=== PATIENT | female | born 1975 | race Caucasian/White ===

== ENCOUNTER 2018-09-09 08:26 | Inpatient (IN) | payer OTHER ==
[2018-09-04 14:48] VITALS: BMI 41.6
--- NOTE | 2018-09-09 10:41 | HP ---
Admitting History and Physical - Admission Chief Complaint: Morbid obesity. BMI 41.6 History Source: Patient Limitations to Obtaining History: No Limitations - Past Medical History ...LMP Comment: 2002 - Past Surgical History Past Surgical History: Yes: Cholecystectomy, , Hysterectomy - Smoking History Smoking history: Former smoker Have you smoked in the past 12 months: No Aproximately how many cigarettes per day: 30 If you are a former smoker, when did you quit?: 2013 - Alcohol/Substance Use Hx Alcohol Use: No Home Medications - Allergies Allergies/Adverse Reactions: Allergies Allergy/AdvReac Type Severity Reaction Status Date / Time morphine Allergy Severe Difficulty Verified 09/09/18 08:42 Breathing aspirin AdvReac Intermediate BRUISING Verified 09/09/18 08:42 - Home Medications Home Medications: Ambulatory Orders Acetaminophen [Tylenol] 2 each PO PRN PRN 09/04/18 Famotidine [Pepcid] 20 mg PO BID #60 tablet 09/09/18 Famotidine [Pepcid] 20 mg PO BID #60 tablet 09/09/18 Family Disease History - Family Disease History Family History: Denies Review of Systems - Review of Systems Eyes: reports: No Symptoms HENT: reports: No Symptoms Neck: reports: No Symptoms Cardiovascular: reports: No Symptoms Respiratory: reports: No Symptoms Gastrointestinal: reports: No Symptoms Neurological: reports: No Symptoms Pain Intensity: 0 Physical Examination Vital Signs: Vital Signs Temperature 98.5 F 09/09/18 08:47 Pulse Rate 81 09/09/18 08:47 Respiratory Rate 19 09/09/18 08:47 Blood Pressure 116/74 09/09/18 08:47 O2 Sat by Pulse Oximetry (%) 96 09/09/18 08:46 Constitutional: Yes: No Distress HENT: Yes: WNL Neck: Yes: WNL Cardiovascular: Yes: WNL Respiratory: Yes: Regular Gastrointestinal: Yes: Soft, Abdomen, Obese. No: Tenderness Neurological: Yes: Alert, Oriented Problem List - Problems (1) Morbid obesity due to excess calories Code(s): E66.01 - MORBID (SEVERE) OBESITY DUE TO EXCESS CALORIES (2) Body mass index (BMI) of 40.1 to 44.9 in adult Code(s): Z68.41 - BODY MASS INDEX (BMI) 40.0-44.9, ADULT Assessment/Plan Laparoscopic possible open vertical sleeve gastrectomy, possible liver biopsy
[2018-09-09] MEDS ORDERED: METOCLOPRAMIDE HCL INJECTION 10 MG/2 ML VIAL IVPUSH SCH ×2 (10:45→14:00)
[2018-09-09] MEDS ORDERED: ACETAMINOPHEN 1000 MG/100 ML VIAL (NON FORMULARY) IVPB SCH (10:45)
[2018-09-09] MEDS ORDERED: MEPERIDINE HCL 50 MG/ML VIAL IM PRN (10:45)
[2018-09-09] MEDS ORDERED: BUPIVACAINE HCL/PF 2.5 MG/ML - 30 ML VIAL IJ ONE (10:58)
[2018-09-09] MEDS ORDERED: BUPIVACAINE HCL/PF 0.25% (2.5MG/ML) 10 ML VIAL IJ ONE (12:38)
--- NOTE | 2018-09-09 12:51 | OP ---
Operative Note - Note: Operative Date: 09/09/18 Pre-Operative Diagnosis: Morbid obesity. BMI 41.6 Operation: Laparoscopic vertical sleeve gastrectomy, wedge liver biopsy Post-Operative Diagnosis: Same as Pre-op (as well as hepatomegaly) Surgeon: Kody Langley Physician Practice Manager: Jeanne Babin Anesthesia: General Specimens Removed: Greater curvature of stomach. Liver biopsy Estimated Blood Loss (mls): 30 Drains & Tubes with Location: 36 fr Bougie Operative Report Dictated: Yes
[2018-09-09] MEDS ORDERED: FAMOTIDINE 20 MG/50 ML IVPB 20 MG/50 ML MG IVPB ONE (13:00)
--- NOTE | 2018-09-09 13:04 | SURG ---
Surgery Winchman/Crane Operator Note Winchman/Crane Operator: Jeanne Babin PA-C Date of Service: 09/09/18 Diagnosis: Morbid obesity. BMI 41.6 Procedure: Laparoscopic vertical sleeve gastrectomy, wedge liver biopsy I was present for the entirety of the operative procedure. For further detail, please refer to operative report. Visit type - Case Type Case Type: Scheduled - New patient This patient is new to me today: Yes Date on this admission: 09/09/18
[2018-09-09] MEDS ORDERED: FAMOTIDINE 20 MG PREMIXED IVPB IVPB ONE (13:10)
[2018-09-09 13:39] LABS: HEMATOCRIT 40.8 % (32.4-45.2); HEMOGLOBIN 13.1 GM/dl (10.7-15.3); MCH 29.6 pg (25.7-33.7); MCHC 32.2 g/dl (32.0-36.0); MEAN CELL VOLUME 91.8 fl (80-96); MEAN PLT VOLUME 7.3 fl (7.5-11.1); PLATELET COUNT 419 K/MM3 (134-434); RBC 4.44 M/mm3 (3.60-5.2); RDW 13.6 % (11.6-15.6); WHITE BLOOD COUNT 12.5 K/mm3 (4.0-10.8)
[2018-09-09 13:46] LABS: ALBUMIN 3.8 g/dl (3.4-5.0); ALK PHOS 70 U/L (45-117); ANION GAP 9 MMOL/L (8-16); BILIRUBIN,TOTAL 0.5 mg/dl (0.2-1); BLOOD UREA NITROGEN 9 mg/dl (7-18); CALCIUM 8.5 mg/dl (8.5-10); CHLORIDE 106 mmol/L (98-107); CO2 23 mmol/L (21-32); CREATININE 0.6 mg/dl (0.55-1.3); GLUCOSE,RANDOM 130 mg/dl (74-106); POTASSIUM 3.7 mmol/L (3.5-5.1); SGOT/AST 40 U/L (15-37); SGPT/ALT 35 U/L (13-61); SODIUM 138 mmol/L (136-145); TOT PROT 6.8 g/dl (6.4-8.2)
[2018-09-09] MEDS: SODIUM CHLORIDE 1,000 ML IV SCH (14:48)
[2018-09-09] MEDS: LACTATED RINGERS SOLUTION 1,000 ML IV SCH (14:49)
[2018-09-09] MEDS: ONDANSETRON 4 MG/2 ML VIAL IVPUSH SCH ×3 (14:58→23:12)
[2018-09-09] MEDS: ACETAMINOPHEN 1000 MG/100 ML VIAL (NON FORMULARY) IVPB SCH (19:46)
[2018-09-09] MEDS: METOCLOPRAMIDE HCL INJECTION 10 MG/2 ML VIAL IVPUSH SCH (19:47)
--- NOTE | 2018-09-09 21:12 | SPEC ---
DATE OF OPERATION: 09/09/2018 SURGEON: Leyla Langley MD BRAKE LINING DRILLER: IRVING Nogueira PREOPERATIVE DIAGNOSES: 1. Morbid obesity. 2. Body mass index of 41.6. POSTOPERATIVE DIAGNOSES: 1. Morbid obesity. 2. Body mass index of 41.6. 3. Hepatomegaly. PROCEDURES: 1. Laparoscopic vertical sleeve gastrectomy. 2. Laparoscopic wedge liver biopsy. SPECIMENS: 1. Greater curve of stomach. 2. Liver biopsy. ESTIMATED BLOOD LOSS: 30 mL DRAINS: None. ANESTHESIA: GET. BOUGIE: Size 36-Amharic. REASON FOR PROCEDURE: This is a 43-year-old female who presents for weight loss options. After describing different options, decided to proceed with a laparoscopic, possible open vertical sleeve gastrectomy, possible liver biopsy. RISKS AND BENEFITS: After describing the different options for weight loss management, the patient decided to proceed with a laparoscopic, possible open vertical sleeve gastrectomy. The patient was seen by the respective subspecialties and cleared for surgery. The risks and benefits of the procedure were explained. These included bleeding, infection, hernia, MN, DVT, PE, injury to surrounding structures including the liver, colon, bowel, spleen, esophagus, vessel injury, nerve injury, weight regain, gastric leak, staple line leak, sleeve leak, obstruction, vitamin deficiency, hair loss and as some of the possible complications. The patient understood and signed informed consent. DESCRIPTION OF PROCEDURE: The patient was placed supine on the operating room table. The patient underwent general endotracheal intubation. The arms were brought out at 90 degrees and secured. A footboard was placed and the legs were secured laterally with padding. The abdomen was prepped and draped in the usual sterile fashion. A timeout was performed. An incision was made in the left upper quadrant and a Veress needle inserted. Pneumoperitoneum was established. Subsequently, the Veress needle was removed and a 5-mm trocar was placed under direct visualization with the laparoscope. The laparoscopic camera was then inserted and inspection of the abdominal cavity was performed. An incision was then made in the supraumbilical area and a 15-mm trocar was placed under direct visualization. A 5-mm trocar was then placed in the right upper quadrant and a 5-mm trocar was placed below the left subcostal margin. A stab wound was made in the subxiphoid area and a Fely clamp inserted and removed to dilate the tract. A Isidoro liver retractor was inserted. The post was secured at the bedside by the nursing staff. The patient was placed in steep reverse Trendelenburg position and the Isidoro liver retractor was used to secure the liver towards the anterior abdominal wall. The pylorus was identified and 6 cm proximal to it, the lesser sac was entered using the LigaSure device. All lateral attachments to the greater curvature of the stomach, including the short gastric vessels, were ligated using the LigaSure device toward the gastrosplenic and gastrophrenic ligaments. Once this was done in its entirety, it was confirmed that all tubes within the nasal or oropharyngeal cavity, including a temperature probe, was removed by Anesthesia. The bougie was then inserted by Anesthesia. Transection of the stomach was then begun staying adjacent to the bougie but away from the angularis. Transection of the stomach was performed near the portion of the stomach where the lesser sac was entered. Two laparoscopic Endo-ALEJANDRO black angelito were used at this location. Laparoscopic Endo ALEJANDRO purple staple loads were then used for the remainder of the transection until the greater curvature of the stomach was fully transected. This was done staying close to the bougie. Care was taken to stay away from the angle of His cephalad. The staple line was then inspected. Hemostasis was identified. A leak test was then performed. It was clamped distally to the staple line. Irrigation solution was placed in the left upper quadrant and air was insufflated by Anesthesia into the sleeve. No leaks were identified. No obstruction was identified. This was done through the entirety of the staple line. In addition, an upper endoscopy was performed. The endoscope was placed into the patients mouth and the entirety of the esophagus, GE junction, gastric pouch and staple line were inspected. No obstruction or leak was noted. The stomach was suctioned and the endoscope removed fully intact. At this point, the irrigation solution was suctioned and again, hemostasis was noted. A wedge liver biopsy was then performed. The left lobe of the liver was identified and a portion of the edge was grasped. Using electrocautery, a wedge of the liver was excised. This was removed and sent off the field as specimen. Hemostasis at the site of the wedge liver biopsy was attained using electrocautery. The 15-mm supraumbilical trocar was then removed and the greater curvature specimen removed from the site using a sponge stick bazzi. The specimen was inspected and a Veress needle inserted. The specimen insufflated adequately and no leak was identified. The staple line was noted to be intact. A Trae-Maribell device was then used to close the fascia with a 0 Vicryl suture at the site. Again, hemostasis was noted. The Isidoro liver retractor was then removed under direct visualization. Pneumoperitoneum was desufflated and the fascial sutures were secured. Hemostasis was noted at all incision sites and Marcaine was injected at all incision sites. All incision sites were closed using 4-0 Biosyn. Sterile dressings were applied. The patient tolerated the procedure well and was transferred to the recovery room in stable condition. The patient was transferred to telemetry for further monitoring. LEYLA LANGLEY M.D. FOREST/[id number]
[2018-09-09] MEDS: FAMOTIDINE 20 MG/50 ML IVPB 20 MG/50 ML MG IVPB SCH (22:00)
[2018-09-09] MEDS: ENOXAPARIN NA (PORCINE) 40 MG/0.4 ML DISP.SYRIN SQ SCH (22:00)
[2018-09-10] MEDS: ACETAMINOPHEN 1000 MG/100 ML VIAL (NON FORMULARY) IVPB SCH ×2 (02:01→09:00)
[2018-09-10] MEDS ORDERED: ACETAMINOPHEN INJECTION 100 ML IVPB ONE (02:01)
[2018-09-10] MEDS: METOCLOPRAMIDE HCL INJECTION 10 MG/2 ML VIAL IVPUSH SCH ×3 (02:02→14:40)
[2018-09-10] MEDS: ONDANSETRON 4 MG/2 ML VIAL IVPUSH SCH ×4 (02:54→15:38)
[2018-09-10 07:44] LABS: HEMOGLOBIN 12.1 GM/dl (10.7-15.3); MCH 30.8 pg (25.7-33.7); MCHC 33.6 g/dl (32.0-36.0); MEAN CELL VOLUME 91.8 fl (80-96); MEAN PLT VOLUME 7.5 fl (7.5-11.1); PLATELET COUNT 360 K/MM3 (134-434); RBC 3.92 M/mm3 (3.60-5.2); RDW 13.7 % (11.6-15.6); WHITE BLOOD COUNT 11.2 K/mm3 (4.0-10.8)
[2018-09-10 08:11] LABS: ALBUMIN 3.3 g/dl (3.4-5.0); ALK PHOS 66 U/L (45-117); ANION GAP 6 MMOL/L (8-16); BILIRUBIN,TOTAL 0.7 mg/dl (0.2-1); BLOOD UREA NITROGEN 8 mg/dl (7-18); CALCIUM 8.3 mg/dl (8.5-10); CHLORIDE 110 mmol/L (98-107); CO2 23 mmol/L (21-32); CREATININE 0.5 mg/dl (0.55-1.3); GLUCOSE,RANDOM 120 mg/dl (74-106); POTASSIUM 3.9 mmol/L (3.5-5.1); SGOT/AST 46 U/L (15-37); SGPT/ALT 68 U/L (13-61); SODIUM 139 mmol/L (136-145); TOT PROT 6.5 g/dl (6.4-8.2)
--- NOTE | 2018-09-10 08:24 | PN ---
Progress Note (short form) - Note Progress Note: POD#1 PT without any CP/SOB. OOB and ambulated yesterday. Voiding without difficulty. No nausea or emesis. Vital Signs Period Temp Pulse Resp BP Sys/Arce Pulse Ox Last 24 Hr 97.6 F-99.1 F 76-108 16-20 115-150/54-88 94-100 GEN: A&0x3 CV: RR, mild tachycardia Lungs: CTA b/l ABD: soft, non-distended, inc tenderness. Inc c/d/i LE: No calf tenderness or swelling noted b/l. SCDs in place. CBC, BMP 09/10/18 07:05 09/10/18 07:05 Laboratory Tests 09/09/18 09/09/18 13:00 13:00 WBC 12.5 H Hgb 13.1 Hct 40.8 Plt Count 419 Sodium 138 Potassium 3.7 Chloride 106 Carbon Dioxide 23 Anion Gap 9 BUN 9 Creatinine 0.6 A/P: 43 yo female s/p lap vertical sleeve gastrectomy Plan for UGI series today, npo until after exam and results negative for leak /obstruction Wean IVF once tolerating oral diet DVT ppx with ambulation, SCDs, Lovenox SQ Monitor tachycardia, pt with slight elevated HR D/w. Dr. Langley Incentive spirometer <Kenya Ivy - Last Filed: 09/10/18 08:50> - Note Progress Note: Agree POD 1 Pain controlled AVSS UGI: no leak/obstruction Clears Discharge home <Kody Langley - Last Filed: 09/10/18 11:58> Problem List - Problems (1) Morbid obesity due to excess calories Code(s): E66.01 - MORBID (SEVERE) OBESITY DUE TO EXCESS CALORIES (2) Body mass index (BMI) of 40.1 to 44.9 in adult Code(s): Z68.41 - BODY MASS INDEX (BMI) 40.0-44.9, ADULT <Kody Langley - Last Filed: 09/10/18 11:58>
[2018-09-10] MEDS: FAMOTIDINE 20 MG/50 ML IVPB 20 MG/50 ML MG IVPB SCH (09:32)
[2018-09-10] MEDS: ENOXAPARIN NA (PORCINE) 40 MG/0.4 ML DISP.SYRIN SQ SCH (09:34)
[2018-09-10] MEDS: SODIUM CHLORIDE 1,000 ML IV SCH (11:36)
[2018-09-10] MEDS ORDERED: MEPERIDINE HCL 50 MG TABLET PO PRN (11:57)
[2018-09-10] MEDS ORDERED: SODIUM CHLORIDE 1,000 ML IV SCH (12:00)
[2018-09-10 14:06] VITALS: BP 100/45; PULSE 78; TEMP 99.5
[2018-09-10] MEDS: LACTATED RINGERS SOLUTION 1,000 ML IV SCH (14:40)
--- NOTE | 2018-09-11 16:59 | PATH ---
Surgical Pathology Report Patient Name: SCOTTY MARCUM Med. Rec. #: [id number] /Age/Gender: 1975 (Age: 43) / F Account: [id number] Location: [facility] MED-SURG Taken: 09/09/2018 Received: 09/09/2018 Reported: 09/11/2018 Physicians: Kody Langley M.D. Specimen(s) Received A: GREATER CURVATURE STOMACH B: LIVER BIOPSY Clinical History Morbid obesity Final Diagnosis A. GREATER CURVATURE STOMACH, LAPAROSCOPIC VERTICAL SLEEVE GASTRECTOMY: SEGMENT OF STOMACH SHOWING MILD CHRONIC GASTRITIS. IMMUNOSTAINING IS NEGATIVE FOR H. PYLORI ORGANISMS. NEGATIVE FOR INTESTINAL METAPLASIA. B. LIVER, BIOPSY: LIVER TISSUE WITH STEATOSIS (~25%), DIFFUSE. NO HISTOLOGIC EVIDENCE OF HEPATITIS. 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 IRON STAIN IS NEGATIVE FOR SIDEROSIS. Comment: Subcapsular liver tissue. Electronically Signed Thomas Graff M.D. Gross Description A. Received in formalin, labeled "greater curvature of stomach," is a 90 gram, 17.5 x 3.0 x 3.0 cm. portion of stomach with a stapled margin of resection. The serosa is browne-marc with minimal attached fat. The mucosa is browne-pink with normal folds. No mucosal masses are identified. Lab Animal Technologist sections are submitted in one cassette. B. Received in formalin labeled "liver biopsy," is a 1.7 x 1.0 x 0.5 cm browne portion of soft tissue, consistent with a portion of liver. The specimen is bisected and entirely submitted in one cassette. /09/10/2018 [facility]09/10/2018
== END 2018-09-10 16:20 | disposition home or self-care (01) | DRG 403 ==
LOC: FM/S 08:26
PROVIDERS: ADMIT Surgery; ATTEND Surgery
PROC: 0DB64Z3 Excision of Stomach, Percutaneous Endoscopic Approach, Vertical (ICD-10-PCS; principal; 2018-09-09 11:48)
PROC: 0FB24ZX Excision of Left Lobe Liver, Percutaneous Endoscopic Approach, Diagnostic (ICD-10-PCS; 2018-09-09 11:48)
DX: E66.01 Morbid (severe) obesity due to excess calories (principal); Z68.41 Body mass index [BMI] 40.0-44.9, adult; R16.0 Hepatomegaly, not elsewhere classified; Z87.891 Personal history of nicotine dependence
CPT/HCPCS: 36415; 74241-TC-FY; 80053; 85027; 88305-TC; 94760; J0131; J2175; J7030